=== PATIENT | male | born 1990 | race Hispanic/Latino ===

== ENCOUNTER 2017-07-26 20:42 | Emergency (ER) | payer SELFPAY ==
[2017-07-26] MEDS ORDERED: ONDANSETRON HCL MDV 20ML 2 MG/ML VIAL ONE (21:37)
[2017-07-26] MEDS ORDERED: SODIUM CHLORIDE 0.9% 1000ML 1,000 ML IV ONE (21:37)
[2017-07-26 21:41] LABS: BASOPHILS % (AUTO) 0.5 % (0.0-5.0); EOSINOPHILS % (AUTO) 7.1 % (0.0-8.0); HEMATOCRIT 45.3 % (42-54); LYMPHOCYTES % (AUTO) 31.5 % (21.0-51.0); MEAN CORPUSCULAR HEMOGLOBIN 29.1 pg (27.0-33.0); MEAN CORPUSCULAR HGB CONC 33.7 g/dL (32.0-36.0); MEAN CORPUSCULAR VOLUME 86.2 fL (79-99); MONOCYTES % (AUTO) 8.4 % (3.0-13.0); NEUTROPHILS % (AUTO) 52.5 % (40.0-77.0); PLATELET COUNT (AUTO) 270 K/uL (130-400); RED BLOOD CELL COUNT(AUTO) 5.26 MIL/uL (4.50-6.20); RED CELL DISTRIBUTION WIDTH 13.4 % (11.0-15.5); WHITE BLOOD COUNT (AUTO) 13.3 K/uL (4.8-10.8)
[2017-07-26] MEDS ORDERED: IOPAMIDOL-370 75 ML VIAL IV ONE (21:41)
[2017-07-26 21:53] LABS: POTASSIUM 4.2 mmol/L (3.5-5.1)
[2017-07-26 21:54] LABS: INR 0.96 (0.85-1.15); PARTIAL THROMBOPLASTIN TIME 25.6 SEC (26.3-35.5); PROTHROMBIN TIME 10.1 SEC (9.6-11.6)
[2017-07-26 21:58] LABS: ALBUMIN 4.1 g/dL (3.5-5.0); BILIRUBIN,TOTAL 0.2 mg/dL (0.2-1.0); TOTAL PROTEIN, SERUM 8.3 g/dL (6.0-8.3)
[2017-07-26 22:11] LABS: APPEARANCE,URINE Clear (CLEAR); BILIRUBIN,URINE Negative (NEGATIVE); COLOR,URINE Yellow (YELLOW); GLUCOSE, URINE (UA) Negative (NEGATIVE); KETONES,URINE Negative (NEGATIVE); LEUKOCYTE ESTERASE ,URINE Negative (NEGATIVE); NITRATE,URINE Negative (NEGATIVE); OCCULT BLOOD,URINE Negative (NEGATIVE); PH,URINE 6.5 (5.0-8.0); PROTEIN,URINE Negative (NEGATIVE)
[2017-07-26 22:53] LABS: AMPHET/METH SCREEN,URINE NEGATIVE (NEGATIVE); BARBITURATE SCREEN, URINE NEGATIVE (NEGATIVE); BENZODIAZEPINES SCREEN,URINE NEGATIVE (NEGATIVE); CANNABINOID SCREEN,URINE NEGATIVE (NEGATIVE); COCAINE SCREEN,URINE NEGATIVE (NEGATIVE); OPIATE SCREEN,URINE NEGATIVE (NEGATIVE); PHENCYCLIDINE SCREEN,URINE NEGATIVE (NEGATIVE)
== END 2017-07-27 00:23 | disposition home or self-care (01) ==
LOC: EDH 20:42
DX: R10.32 Left lower quadrant pain (principal)
CPT/HCPCS: 36415; 74177; 80053; 80305; 81003; 83690; 85025; 85610; 85730; 96361; 96374; 99285; J7030; Q9967

== ENCOUNTER 2020-04-13 20:51 | Emergency (ER) | payer OTHER ==
[2020-04-13] MEDS ORDERED: CEPHALEXIN 500 MG CAPSULE ONE (21:27)
[2020-04-13] MEDS ORDERED: HYDROCODONE/ACETAMINOPHEN 10/325 MG TAB ONE (21:28)
== END 2020-04-13 21:53 | disposition home or self-care (01) ==
LOC: EDH 20:51
DX: S80.01XA Contusion of right knee, initial encounter (principal); S80.811A Abrasion, right lower leg, initial encounter; F32.9 Major depressive disorder, single episode, unspecified; F41.9 Anxiety disorder, unspecified; Z90.49 Acquired absence of other specified parts of digestive tract; X58.XXXA Exposure to other specified factors, initial encounter; Y93.67 Activity, basketball; Y92.89 Other specified places as the place of occurrence of the external cause; Y99.8 Other external cause status
CPT/HCPCS: 73562; 73590

== ENCOUNTER 2020-04-19 21:06 | Inpatient (IN) | payer SELFPAY ==
[~2020-04-19] VITALS: Ht 160 cm; Wt 81.0 kg
[2020-04-19 21:31] LABS: BASOPHILS % (AUTO) 0.3 % (0.0-5.0); EOSINOPHILS % (AUTO) 0.1 % (0.0-8.0); HEMATOCRIT 48.2 % (42-54); LYMPHOCYTES % (AUTO) 7.2 % (21.0-51.0); MEAN CORPUSCULAR HEMOGLOBIN 28.8 pg (27.0-33.0); MEAN CORPUSCULAR HGB CONC 33.6 g/dL (32.0-36.0); MEAN CORPUSCULAR VOLUME 85.8 fL (79-99); MONOCYTES % (AUTO) 9.7 % (3.0-13.0); NEUTROPHILS % (AUTO) 81.8 % (40.0-77.0); PLATELET COUNT (AUTO) 313 K/uL (130-400); RED BLOOD CELL COUNT(AUTO) 5.62 MIL/uL (4.50-6.20); RED CELL DISTRIBUTION WIDTH 12.9 % (11.0-15.5); WHITE BLOOD COUNT (AUTO) 20.5 K/uL (4.8-10.8)
[2020-04-19 21:39] LABS: CREATININE 1.1 mg/dL (0.5-1.5); POTASSIUM 3.8 mmol/L (3.5-5.1)
[2020-04-19 21:43] LABS: ALBUMIN 4.2 g/dL (3.5-5.0); BILIRUBIN,TOTAL 0.5 mg/dL (0.2-1.0); TOTAL PROTEIN, SERUM 8.6 g/dL (6.0-8.3)
[2020-04-19 21:46] LABS: INR 1.04 (0.85-1.15); PARTIAL THROMBOPLASTIN TIME 26.7 SEC (26.3-35.5); PROTHROMBIN TIME 11.2 SEC (9.6-11.6)
[2020-04-19] MEDS ORDERED: METRONIDAZOLE 500MG/100ML BAG 100 ML ONE (22:02)
[2020-04-19] MEDS ORDERED: SODIUM CHLORIDE 0.9% 1000ML 1,000 ML IV ONE (22:02)
[2020-04-19] MEDS ORDERED: LACTULOSE 20 GM/30 ML UDCUP PO PRN (23:30)
[2020-04-19] MEDS ORDERED: ACETAMINOPHEN 325 MG TAB PO PRN ×2 (23:30)
[2020-04-19] MEDS ORDERED: MORPHINE SULFATE 2 MG/ML 1ML SYG IV PRN (23:30)
[2020-04-20] MEDS ORDERED: LEVOFLOXACIN 500 MG/D5W 100 ML 100 ML ONE (00:06)
[2020-04-20] MEDS ORDERED: PANTOPRAZOLE 40 MG/VIAL ONE (00:06)
[2020-04-20] MEDS ORDERED: SODIUM CHLORIDE 0.9% 1000ML 1,000 ML IV ONE (00:08)
[2020-04-20] MEDS: LEVOFLOXACIN 500 MG/D5W 100 ML 100 ML IV SCH (01:00)
[2020-04-20 01:55] VITALS: BP 115/68
[2020-04-20] MEDS: SODIUM CHLORIDE 0.9% 1000ML 1,000 ML IV SCH ×3 (02:32→16:44)
[2020-04-20] MEDS ORDERED: IBUP-2070 PO (02:43)
[2020-04-20] MEDS ORDERED: ACET-2743 PO (02:43)
[2020-04-20] MEDS: ONDANSETRON HCL 4 MG/2 ML VIAL IV PRN ×2 (03:02→16:36)
[2020-04-20 03:40] VITALS: BP 111/80
[2020-04-20 06:05] LABS: BASOPHILS % (AUTO) 0.3 % (0.0-5.0); EOSINOPHILS % (AUTO) 0.2 % (0.0-8.0); HEMATOCRIT 42.8 % (42-54); MEAN CORPUSCULAR HGB CONC 32.9 g/dL (32.0-36.0); MEAN CORPUSCULAR VOLUME 88.1 fL (79-99); NEUTROPHILS % (AUTO) 74.7 % (40.0-77.0); PLATELET COUNT (AUTO) 272 K/uL (130-400); RED BLOOD CELL COUNT(AUTO) 4.86 MIL/uL (4.50-6.20); RED CELL DISTRIBUTION WIDTH 12.9 % (11.0-15.5); WHITE BLOOD COUNT (AUTO) 18.2 K/uL (4.8-10.8)
[2020-04-20 06:44] LABS: CREATININE 0.8 mg/dL (0.5-1.5); POTASSIUM 4.4 mmol/L (3.5-5.1)
[2020-04-20 08:00] VITALS: BP 104/67
[2020-04-20] MEDS: METRONIDAZOLE 500MG/100ML BAG 100 ML IV SCH ×3 (09:49→15:32)
[2020-04-20] MEDS: PANTOPRAZOLE 40 MG/VIAL IVP SCH (09:53)
[2020-04-20 11:52] VITALS: BP 104/68
[2020-04-20] MEDS ORDERED: LACTULOSE 20 GM/30 ML UDCUP PO SCH (15:15)
[2020-04-20] MEDS ORDERED: MAGNESIUM CITRATE 296 ML SOLUTION PO SCH (15:15)
[2020-04-20 16:00] VITALS: BP 120/80
[2020-04-20] MEDS ORDERED: PEG 3350/NA SULF,BICARB,CL/KCL 4000 ML SOLN PO SCH (16:00)
--- NOTE | 2020-04-20 16:23 | NUR ---
INITIAL SW spoke with patient. He states he lives with his spoue, Baldomero Ramirez. No home services or DME. Patient is able to drive and able to complete ADL's independently. Patient has no PCP. Pharmacy is [facility] located in [place]. DCP is home. Patient has no insurance or benefits. 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 Patient was provided with community resources for post hospitalization follow up. Patient was also provided with Good RX card for prescriptions and educated on [facility] $4 medication program and [facility] $5 medication program. Patient is being assisted by [employer] for financial matters. Addendum: 04/20/20 at 1625 by LESLIE JOVEL Amended: Links added.
[2020-04-20] MEDS ORDERED: BISACODYL 5 MG TABLET.DR PO SCH (17:00)
[2020-04-20 19:00] VITALS: BP 113/81
[2020-04-21] VITALS (21 sets, daily range): BP systolic 91–131; BP diastolic 46–88
[2020-04-21] MEDS: SODIUM CHLORIDE 0.9% 1000ML 1,000 ML IV SCH ×5 (02:01→23:50)
[2020-04-21] MEDS: METRONIDAZOLE 500MG/100ML BAG 100 ML IV SCH ×4 (02:01→23:50)
[2020-04-21] MEDS: LEVOFLOXACIN 500 MG/D5W 100 ML 100 ML IV SCH (03:11)
[2020-04-21 05:53] LABS: BASOPHILS % (AUTO) 0.5 % (0.0-5.0); EOSINOPHILS % (AUTO) 1.8 % (0.0-8.0); HEMATOCRIT 39.8 % (42-54); LYMPHOCYTES % (AUTO) 26.9 % (21.0-51.0); MEAN CORPUSCULAR HGB CONC 32.9 g/dL (32.0-36.0); MEAN CORPUSCULAR VOLUME 88.1 fL (79-99); MONOCYTES % (AUTO) 8.5 % (3.0-13.0); NEUTROPHILS % (AUTO) 61.5 % (40.0-77.0); PLATELET COUNT (AUTO) 263 K/uL (130-400); RED BLOOD CELL COUNT(AUTO) 4.52 MIL/uL (4.50-6.20); RED CELL DISTRIBUTION WIDTH 13.2 % (11.0-15.5); WHITE BLOOD COUNT (AUTO) 10.7 K/uL (4.8-10.8)
[2020-04-21 06:23] LABS: CREATININE 0.9 mg/dL (0.5-1.5); CRP QUANTITATIVE 60.4 mg/L (0.00-9.0); MAGNESIUM 2.1 mg/dL (1.80-2.40); PHOSPHORUS 3.2 mg/dL (2.5-4.9); POTASSIUM 4.1 mmol/L (3.5-5.1); THYROID STIMULATING HORMONE 2.12 uIU/mL (0.36-3.74)
[2020-04-21 07:10] LABS: ERYTHROCYTE SEDIMENTATION RATE 20 MM/HR (0-15)
[2020-04-21] MEDS: PANTOPRAZOLE 40 MG/VIAL IVP SCH (10:28)
[2020-04-21] MEDS ORDERED: PROPOFOL 10 MG/ML 20ML VIAL IV ONE ×2 (13:54→14:00)
[2020-04-21] MEDS ORDERED: LIDOCAINE HCL 1% 20 ML VIAL ONE (13:55)
[2020-04-21] MEDS ORDERED: GLYCOPYRROLATE 1 MG/5 ML SYRINGE ONE (14:01)
[2020-04-22 03:33] VITALS: BP 90/64
[2020-04-22 08:14] VITALS: BP 98/59
[2020-04-22] MEDS ORDERED: METR500T PO (08:43)
[2020-04-22] MEDS ORDERED: CEFD300C3 PO (08:43)
[2020-04-22] MEDS: SODIUM CHLORIDE 0.9% 1000ML 1,000 ML IV SCH (08:44)
[2020-04-22] MEDS: METRONIDAZOLE 500MG/100ML BAG 100 ML IV SCH (08:52)
[2020-04-22] MEDS: PANTOPRAZOLE 40 MG/VIAL IVP SCH (08:53)
[2020-04-22] MEDS ORDERED: CEFDINIR 250MG/5ML 60ML BOTTLE PO SCH (09:00)
[2020-04-22 11:36] VITALS: BP 101/67
--- NOTE | 2020-04-22 11:45 | NUR ---
NOTE AAOX3. DENIES PAIN OR DISCOMFORT. NO N/V NO ABDOMINAL PAIN REPORTED AND ON BLOODY STOOLS. HE IS CLEARED FOR DC FROM GI AND FROM HOSPITALIST. WILL GO HOME WITH RX FOR ABX. 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
--- NOTE | 2020-04-23 11:37 | NUR ---
TRANSITIONAL CARE - POST-DISCHARGE NOTE NO ANSWER. Unable to leave voicemail at number on file. Attempted to contact patient at other number on file but it seems to be a non-working number.
== END 2020-04-22 12:25 | disposition home or self-care (01) | DRG 378 ==
LOC: EDH 21:06 → EDHIP 21:07 → 3AH 04-20 01:31
PROVIDERS: ADMIT Internal Medicine; ATTEND Internal Medicine
PROC: 0DBP8ZZ Excision of Rectum, Via Natural or Artificial Opening Endoscopic (ICD-10-PCS; principal; 2020-04-21)
PROC: 0DBP8ZX Excision of Rectum, Via Natural or Artificial Opening Endoscopic, Diagnostic (ICD-10-PCS; 2020-04-21)
DX: K92.1 Melena (principal); A09 Infectious gastroenteritis and colitis, unspecified; E87.1 Hypo-osmolality and hyponatremia; K64.8 Other hemorrhoids; D72.829 Elevated white blood cell count, unspecified; F32.9 Major depressive disorder, single episode, unspecified; Z90.49 Acquired absence of other specified parts of digestive tract; F41.9 Anxiety disorder, unspecified; M19.90 Unspecified osteoarthritis, unspecified site; Z20.828 Contact with and (suspected) exposure to other viral communicable diseases; Z82.49 Family history of ischemic heart disease and other diseases of the circulatory system; Z82.5 Family history of asthma and other chronic lower respiratory diseases; Z83.3 Family history of diabetes mellitus; Z80.0 Family history of malignant neoplasm of digestive organs; Q79.8 Other congenital malformations of musculoskeletal system; K62.1 Rectal polyp; K63.89 Other specified diseases of intestine; K64.0 First degree hemorrhoids
CPT/HCPCS: 36415; 45380; 71045; 72170; 74021; 74176; 80048; 80053; 82270; 83630; 83690; 83735; 84100; 84145; 84443; 85025; 85610; 85651; 85730; 86140; 86850; 86900; 86901; 86922; 87046; 87077; 87088; 87186; 87324; 87507; C9113; G0378; J1956; J2405; J2704; J3490; J7030; U0003

== ENCOUNTER 2020-09-03 11:55 | Emergency (ER) | payer OTHER ==
[~2020-09-03 11:55] MED LIST: CEFD300C3 PO; METR500T PO
[2020-09-03 12:47] LABS: BASOPHILS % (AUTO) 0.3 % (0.0-5.0); EOSINOPHILS % (AUTO) 0.9 % (0.0-8.0); LYMPHOCYTES % (AUTO) 13.7 % (21.0-51.0); MEAN CORPUSCULAR HEMOGLOBIN 28.6 pg (27.0-33.0); MEAN CORPUSCULAR VOLUME 86.8 fL (79-99); NEUTROPHILS % (AUTO) 77.7 % (40.0-77.0); PLATELET COUNT (AUTO) 280 K/uL (130-400); RED BLOOD CELL COUNT(AUTO) 5.76 MIL/uL (4.50-6.20); RED CELL DISTRIBUTION WIDTH 13.2 % (11.0-15.5); WHITE BLOOD COUNT (AUTO) 16.7 K/uL (4.8-10.8)
[2020-09-03 12:59] LABS: CREATININE 0.9 mg/dL (0.5-1.5)
[2020-09-03 13:06] LABS: ALBUMIN 4.3 g/dL (3.5-5.0); BILIRUBIN,TOTAL 0.5 mg/dL (0.2-1.0); TOTAL PROTEIN, SERUM 8.4 g/dL (6.0-8.3)
[2020-09-03] MEDS ORDERED: IOHEXOL-350 75 ML VIAL IV ONE (14:13)
[2020-09-03] MEDS ORDERED: FAMOTIDINE/PF 20 MG/2 ML VIAL IV ONE (14:59)
[2020-09-03] MEDS ORDERED: ONDANSETRON HCL 4 MG/2 ML VIAL ONE (14:59)
[2020-09-03] MEDS ORDERED: SODIUM CHLORIDE 0.9% 1000ML 1,000 ML IV ONE (15:00)
[2020-09-03 15:06] LABS: APPEARANCE,URINE Clear (CLEAR); BILIRUBIN,URINE Negative (NEGATIVE); COLOR,URINE Yellow (YELLOW); GLUCOSE, URINE (UA) Negative (NEGATIVE); KETONES,URINE Negative (NEGATIVE); LEUKOCYTE ESTERASE ,URINE Negative (NEGATIVE); NITRATE,URINE Negative (NEGATIVE); OCCULT BLOOD,URINE Negative (NEGATIVE); PH,URINE 6.5 (5.0-8.0); PROTEIN,URINE Negative (NEGATIVE); UROBILINOGEN,URINE 0.2 mg/dL (0.2-1.0)
== END 2020-09-03 17:32 | disposition home or self-care (01) ==
LOC: EDH 11:55
DX: U07.1 COVID-19 (principal); K52.89 Other specified noninfective gastroenteritis and colitis; M19.90 Unspecified osteoarthritis, unspecified site; F41.9 Anxiety disorder, unspecified; F32.9 Major depressive disorder, single episode, unspecified; Z90.49 Acquired absence of other specified parts of digestive tract; Z98.890 Other specified postprocedural states
CPT/HCPCS: 36415; 71045; 74177; 80053; 81003; 83605; 83690; 85025; 87040 ×2; 87426; 87804 ×2; 87880; 96365; 96366; 96375; 99285; J2405; J3490; J7030; Q9967

== ENCOUNTER 2020-11-13 15:19 | Emergency (ER) | payer OTHER, SELFPAY ==
[~2020-11-13] VITALS: Ht 165.1 cm; Wt 81.6 kg
[2020-11-13 15:30] VITALS: BP 129/79
[2020-11-13] MEDS ORDERED: DICYCLOMINE 20MG (10MG/ML) AMP IM SCH (15:35)
[2020-11-13] MEDS ORDERED: LIDOCAINE HCL 2% VISCOUS 15 ML UDCUP PO SCH (15:45)
[2020-11-13] MEDS ORDERED: FAMOTIDINE 20MG VIAL IV SCH (15:45)
[2020-11-13] MEDS ORDERED: ONDANSETRON 4MG INJ IVP SCH (15:45)
[2020-11-13] MEDS ORDERED: MAG/ALUM/SIMETH 30 ML UDCUP PO SCH (15:45)
[2020-11-13 15:53] LABS: BASOPHILS % (AUTO) 0.3 % (0.0-5.0); EOSINOPHILS % (AUTO) 1.5 % (0.0-8.0); HEMATOCRIT 45.6 % (42-54); LYMPHOCYTES % (AUTO) 24.9 % (21.0-51.0); MEAN CORPUSCULAR HEMOGLOBIN 29.4 pg (27.0-33.0); MEAN CORPUSCULAR HGB CONC 33.3 g/dL (32.0-36.0); MEAN CORPUSCULAR VOLUME 88.2 fL (79-99); MONOCYTES % (AUTO) 8.7 % (3.0-13.0); PLATELET COUNT (AUTO) 281 K/uL (130-400); RED BLOOD CELL COUNT(AUTO) 5.17 MIL/uL (4.50-6.20); RED CELL DISTRIBUTION WIDTH 12.9 % (11.0-15.5); WHITE BLOOD COUNT (AUTO) 10.6 K/uL (4.8-10.8)
[2020-11-13 15:59] LABS: APPEARANCE,URINE Clear (CLEAR); BILIRUBIN,URINE Negative (NEGATIVE); COLOR,URINE Yellow (YELLOW); GLUCOSE, URINE (UA) Negative (NEGATIVE); KETONES,URINE Negative (NEGATIVE); LEUKOCYTE ESTERASE ,URINE Negative (NEGATIVE); NITRATE,URINE Negative (NEGATIVE); OCCULT BLOOD,URINE Negative (NEGATIVE); PH,URINE 5.5 (5.0-8.0); PROTEIN,URINE Negative (NEGATIVE); UROBILINOGEN,URINE 0.2 mg/dL (0.2-1.0)
[2020-11-13 16:05] LABS: CREATININE 0.8 mg/dL (0.5-1.5); POTASSIUM 4.3 mmol/L (3.5-5.1)
[2020-11-13 16:09] LABS: ALBUMIN 3.8 g/dL (3.5-5.0); BILIRUBIN,TOTAL 0.4 mg/dL (0.2-1.0); TOTAL PROTEIN, SERUM 7.7 g/dL (6.0-8.3)
[2020-11-13] MEDS ORDERED: DICY20TA2 PO (16:33)
[2020-11-13] MEDS ORDERED: FAMO-136 PO (16:33)
== END 2020-11-13 17:01 | disposition home or self-care (01) ==
LOC: EDH 15:19
DX: K29.70 Gastritis, unspecified, without bleeding (principal); Z79.899 Other long term (current) drug therapy
CPT/HCPCS: 36415; 80053; 81003; 83690; 85025; 96372; 96374; 96375; 99284; J0500; J2405; J3490

== ENCOUNTER 2021-07-27 21:22 | Emergency (ER) | payer OTHER ==
[~2021-07-27] VITALS: Ht 165.1 cm; Wt 89.4 kg
[~2021-07-27 21:22] MED LIST changes: +DICY20TA2 PO; +FAMO-136 PO
[2021-07-27 21:44] VITALS: BP 125/82
[2021-07-27] MEDS ORDERED: DIPHENHYDRAMINE HCL 25 MG CAPSULE PO ONE (22:00)
[2021-07-27] MEDS ORDERED: DEXAMETHASONE 4 MG TAB PO SCH (22:00)
[2021-07-27] MEDS ORDERED: AMOX/CLAV 875/125MG TAB PO ONE (22:00)
[2021-07-27] MEDS ORDERED: ACETAMINOPHEN 500 MG TABLET ONE (22:06)
[2021-07-27] MEDS ORDERED: IBUPROFEN 400 MG TABLET ONE (22:06)
[2021-07-27] MEDS ORDERED: FEXO1TAB5 PO (22:10)
[2021-07-27] MEDS ORDERED: PRED20TA3 PO (22:10)
[2021-07-27] MEDS ORDERED: AMOX1TAB16 PO (22:10)
[2021-07-27] MEDS ORDERED: ACETAMINOPHEN 500 MG TABLET PO ONE (22:30)
[2021-07-27] MEDS ORDERED: IBUPROFEN 800 MG TAB PO ONE (22:30)
== END 2021-07-27 22:23 | disposition home or self-care (01) ==
LOC: EDH 21:22
DX: J01.00 Acute maxillary sinusitis, unspecified (principal); J06.9 Acute upper respiratory infection, unspecified; Z20.822 Contact with and (suspected) exposure to COVID-19; M19.90 Unspecified osteoarthritis, unspecified site; Z79.1 Long term (current) use of non-steroidal anti-inflammatories (NSAID); Z79.52 Long term (current) use of systemic steroids; Z90.49 Acquired absence of other specified parts of digestive tract
CPT/HCPCS: 71045; 87635; 87804 ×2; 99284; C9803; J8540; Q0163

== ENCOUNTER 2022-03-05 21:35 | Emergency (ER) | payer OTHER ==
[~2022-03-05] VITALS: Ht 165.1 cm; Wt 85.7 kg
[~2022-03-05 21:35] MED LIST changes: +ACET-2079 PO; +AMOX1TAB16 PO; +FEXO1TAB5 PO; +PRED20TA3 PO
[2022-03-05 21:36] VITALS: BP 124/84
[2022-03-05] MEDS ORDERED: CEPH500B PO (22:19)
[2022-03-05] MEDS ORDERED: CEPHALEXIN 500 MG CAPSULE ONE (22:25)
[2022-03-05] MEDS ORDERED: CEPHALEXIN 500 MG CAPSULE PO ONE (22:30)
== END 2022-03-05 22:36 | disposition home or self-care (01) ==
LOC: EDH 21:35
DX: L70.0 Acne vulgaris (principal); K21.9 Gastro-esophageal reflux disease without esophagitis; F41.9 Anxiety disorder, unspecified; F32.A Depression, unspecified; Z79.52 Long term (current) use of systemic steroids; Z90.49 Acquired absence of other specified parts of digestive tract